=== PATIENT | female | born 1975 | race Hispanic/Latino ===

== ENCOUNTER 2018-11-07 14:16 | Emergency (ER) | payer MEDICAID, OTHER ==
[2018-11-07] MEDS ORDERED: TETRACAINE HCL 0.5% 4 ML OPHTH SOLN ONE (15:02)
[2018-11-07] MEDS ORDERED: DEXAMETHASONE SOD PHOSPHATE 10MG/ML 1ML VIAL ONE (15:02)
[2018-11-07] MEDS ORDERED: NA BORATE/BORIC AC/H2O/NACL 120 ML OPHTH IRRIG SOLN ONE (15:02)
[2018-11-07] MEDS ORDERED: FLUORESCEIN SODIUM 1 STRIP STRIP ONE (15:03)
[2018-11-07] MEDS ORDERED: DiphenhydrAMINE HCL 50 MG/ML VIAL ONE (15:03)
== END 2018-11-07 16:40 | disposition home or self-care (01) ==
LOC: EDH 14:16
DX: H10.11 Acute atopic conjunctivitis, right eye (principal); E11.9 Type 2 diabetes mellitus without complications; Z90.49 Acquired absence of other specified parts of digestive tract
CPT/HCPCS: 81025; 96372 ×2; 99284; J1100; J1200

== ENCOUNTER 2019-09-25 12:53 | Emergency (ER) | payer OTHER, SELFPAY ==
[2019-09-25 14:47] LABS: BASOPHILS % (AUTO) 0.4 % (0.0-5.0); EOSINOPHILS % (AUTO) 3.4 % (0.0-8.0); HEMATOCRIT 34.7 % (36-48); LYMPHOCYTES % (AUTO) 18.2 % (21.0-51.0); MEAN CORPUSCULAR HEMOGLOBIN 18.9 pg (27.0-33.0); MEAN CORPUSCULAR HGB CONC 29.7 g/dL (32.0-36.0); MEAN CORPUSCULAR VOLUME 63.8 fL (79-99); MONOCYTES % (AUTO) 6.4 % (3.0-13.0); NEUTROPHILS % (AUTO) 71.3 % (40.0-77.0); PLATELET COUNT (AUTO) 433 K/uL (130-400); RED BLOOD CELL COUNT(AUTO) 5.44 MIL/uL (4.00-5.50); RED CELL DISTRIBUTION WIDTH 16.8 % (11.0-15.5); WHITE BLOOD COUNT (AUTO) 9.1 K/uL (4.8-10.8)
[2019-09-25 14:51] LABS: CREATININE 0.6 mg/dL (0.5-1.5); POTASSIUM 3.2 mmol/L (3.5-5.1)
[2019-09-25 15:01] LABS: ALBUMIN 3.4 g/dL (3.5-5.0); BILIRUBIN,TOTAL 0.2 mg/dL (0.2-1.0); TOTAL PROTEIN, SERUM 7.9 g/dL (6.0-8.3)
[2019-09-25] MEDS ORDERED: KETOROLAC TROMETHAMINE 15MG/ML ONE (15:03)
[2019-09-25] MEDS ORDERED: SODIUM CHLORIDE 0.9% 1000ML 1,000 ML IV ONE (15:03)
[2019-09-25 15:13] LABS: APPEARANCE,URINE Cloudy (CLEAR); BILIRUBIN,URINE Negative (NEGATIVE); COLOR,URINE Yellow (YELLOW); GLUCOSE, URINE (UA) >=1000 mg/dL (NEGATIVE); KETONES,URINE Negative (NEGATIVE); LEUKOCYTE ESTERASE ,URINE Moderate (NEGATIVE); NITRATE,URINE Negative (NEGATIVE); OCCULT BLOOD,URINE Negative (NEGATIVE); PH,URINE 6.5 (5.0-8.0); PROTEIN,URINE Trace mg/dL (NEGATIVE)
[2019-09-25 15:43] LABS: BACTERIA,URINE Few /HPF (None Seen); RBC,URINE None Seen /HPF (0-1)
== END 2019-09-25 16:01 | disposition home or self-care (01) ==
LOC: EDH 12:53
DX: N39.0 Urinary tract infection, site not specified (principal); R10.31 Right lower quadrant pain; E11.9 Type 2 diabetes mellitus without complications; Z90.49 Acquired absence of other specified parts of digestive tract
CPT/HCPCS: 36415; 74176; 80053; 81001; 84702; 85025; 96374; 99285; J1885; J7030

== ENCOUNTER 2021-07-22 19:26 | Emergency (ER) | payer SELFPAY ==
[~2021-07-22] VITALS: Ht 162.6 cm; Wt 57.6 kg
[2021-07-22] MEDS ORDERED: ASPIRIN 325MG TAB PO ONE (20:00)
[2021-07-22 20:15] LABS: BASOPHILS % (AUTO) 0.5 % (0.0-5.0); EOSINOPHILS % (AUTO) 4.3 % (0.0-8.0); HEMATOCRIT 28.7 % (36-48); LYMPHOCYTES % (AUTO) 20.5 % (21.0-51.0); MEAN CORPUSCULAR HEMOGLOBIN 16.1 pg (27.0-33.0); MEAN CORPUSCULAR HGB CONC 27.2 g/dL (32.0-36.0); MEAN CORPUSCULAR VOLUME 59.2 fL (79-99); NEUTROPHILS % (AUTO) 67.5 % (40.0-77.0); PLATELET COUNT (AUTO) 567 K/uL (130-400); RED BLOOD CELL COUNT(AUTO) 4.85 MIL/uL (4.00-5.50); RED CELL DISTRIBUTION WIDTH 19.6 % (11.0-15.5); WHITE BLOOD COUNT (AUTO) 10.1 K/uL (4.8-10.8)
[2021-07-22 20:29] LABS: CREATININE 0.7 mg/dL (0.5-1.5); POTASSIUM 3.5 mmol/L (3.5-5.1)
[2021-07-22 20:34] LABS: ALBUMIN 3.6 g/dL (3.5-5.0); BILIRUBIN,TOTAL 0.2 mg/dL (0.2-1.0); TOTAL PROTEIN, SERUM 7.9 g/dL (6.0-8.3)
[2021-07-22] MEDS ORDERED: ORPHENADRINE CITRATE 30 MG/ML ML IV ONE (21:00)
[2021-07-22] MEDS ORDERED: KETOROLAC 30MG VIAL (30MG/ML) IV ONE (21:00)
[2021-07-22 21:57] LABS: APPEARANCE,URINE Clear (CLEAR); BILIRUBIN,URINE Negative (NEGATIVE); COLOR,URINE Yellow (YELLOW); GLUCOSE, URINE (UA) 250 mg/dL (NEGATIVE); KETONES,URINE Negative (NEGATIVE); LEUKOCYTE ESTERASE ,URINE Small (NEGATIVE); NITRATE,URINE Negative (NEGATIVE); OCCULT BLOOD,URINE Trace (NEGATIVE); PROTEIN,URINE Negative (NEGATIVE); UROBILINOGEN,URINE 0.2 mg/dL (0.2-1.0)
[2021-07-22 21:59] LABS: HCG,QUAL RESULT NEGATIVE (NEGATIVE)
[2021-07-22] MEDS ORDERED: DiphenhydrAMINE HCL 50 MG/ML VIAL IV ONE (22:00)
[2021-07-22 22:05] LABS: AMPHET/METH SCREEN,URINE NEGATIVE (NEGATIVE); BARBITURATE SCREEN, URINE NEGATIVE (NEGATIVE); BENZODIAZEPINES SCREEN,URINE NEGATIVE (NEGATIVE); CANNABINOID SCREEN,URINE NEGATIVE (NEGATIVE); COCAINE SCREEN,URINE NEGATIVE (NEGATIVE); OPIATE SCREEN,URINE NEGATIVE (NEGATIVE); PHENCYCLIDINE SCREEN,URINE NEGATIVE (NEGATIVE)
[2021-07-22 22:06] LABS: BACTERIA,URINE Few /HPF (None Seen); MUCUS,URINE Few LPF (None Seen); SQUAMOUS EPITHELIAL CELL,UR Moderate /HPF (0-2)
[2021-07-22] MEDS ORDERED: IOHEXOL 350 MG/ML 100ML INFUS..BTL IV ONE (22:16)
[2021-07-22 23:31] VITALS: BP 147/85
[2021-07-22] MEDS ORDERED: MELO7.5T12 PO (23:35)
[2021-07-22] MEDS ORDERED: ORPH-43 PO (23:35)
== END 2021-07-22 23:57 | disposition home or self-care (01) ==
LOC: EDH 19:26
DX: R07.89 Other chest pain (principal); D64.9 Anemia, unspecified; M62.838 Other muscle spasm; M54.6 Pain in thoracic spine; E11.9 Type 2 diabetes mellitus without complications; E78.00 Pure hypercholesterolemia, unspecified; Z79.1 Long term (current) use of non-steroidal anti-inflammatories (NSAID); Z79.899 Other long term (current) drug therapy
CPT/HCPCS: 36415; 71045; 71260; 74177; 80053; 80305; 81001; 81025; 84484; 85025; 87088; 93005; 96374; 96375; 99285; J1200; J1885; J2360; Q9967

== ENCOUNTER 2023-12-31 15:29 | Inpatient (IN) | payer OTHER ==
[~2023-12-31] VITALS: Ht 144.8 cm; Wt 59.5 kg
[~2023-12-31 15:29] MED LIST: MELO7.5T12 PO; ORPH100T4 PO
[2023-12-31 16:03] LABS: BASOPHILS # (AUTO) 0.04 K/uL (0.00-0.20); BASOPHILS % (AUTO) 0.3 % (0.0-5.0); EOSINOPHILS # (AUTO) 0.03 K/uL (0.00-0.70); EOSINOPHILS % (AUTO) 0.2 % (0.0-8.0); HEMATOCRIT 32.8 % (36-48); IMMATURE GRANULOCYTE ABSOLUTE 0.07 K/uL (0-1); LYMPHOCYTES # (AUTO) 0.4 K/uL (1.0-4.8); LYMPHOCYTES % (AUTO) 2.5 % (21.0-51.0); MEAN CORPUSCULAR HEMOGLOBIN 20.7 pg (27.0-33.0); MEAN CORPUSCULAR HGB CONC 31.7 g/dL (32.0-36.0); MEAN CORPUSCULAR VOLUME 65.3 fL (79-99); MONOCYTES # (AUTO) 0.2 K/uL (0.1-1.0); MONOCYTES % (AUTO) 1.4 % (3.0-13.0); NEUTROPHILS # (AUTO) 13.9 K/uL (1.8-7.7); NEUTROPHILS % (AUTO) 95.1 % (40.0-77.0); PLATELET COUNT (AUTO) 414 K/uL (130-400); RED BLOOD CELL COUNT(AUTO) 5.02 MIL/uL (4.00-5.50); RED CELL DISTRIBUTION WIDTH 17.5 % (11.0-15.5); WHITE BLOOD COUNT (AUTO) 14.6 K/uL (4.8-10.8)
[2023-12-31] MEDS: 0.9%NACL 1000ML 1,000 ML IV ONE (16:22)
[2023-12-31] MEDS: ACETAMINOPHEN 500 MG TABLET PO ONE (16:22)
[2023-12-31 16:23] LABS: APPEARANCE,URINE CLOUDY (CLEAR); BILIRUBIN,URINE NEGATIVE (NEGATIVE); COLOR,URINE LIGHT-YELLOW (YELLOW); GLUCOSE, URINE (UA) >=1000 mg/dL (NEGATIVE); KETONES,URINE 5 mg/dL (NEGATIVE); LEUKOCYTE ESTERASE ,URINE 500 Leu/uL (NEGATIVE); NITRATE,URINE 1+ (NEGATIVE); OCCULT BLOOD,URINE MODERATE (NEGATIVE); PROTEIN,URINE 100 mg/dL (NEGATIVE); UROBILINOGEN,URINE 0.2 mg/dL (0.2-1.0)
[2023-12-31 16:24] LABS: ADD UA MICROSCOPIC YES
[2023-12-31 16:31] LABS: BACTERIA,URINE RARE /HPF (None Seen); MUCUS,URINE RARE LPF (None Seen); SQUAMOUS EPITHELIAL CELL,UR MOD /HPF (0-2); WBC CLUMP MOD /HPF (0-1); WBC,URINE TNTC /HPF (0-1)
[2023-12-31 16:37] LABS: CREATININE 0.9 mg/dL (0.5-1.0); POTASSIUM 3.6 mmol/L (3.5-5.1)
[2023-12-31 16:42] LABS: ALBUMIN 3.5 g/dL (3.5-5.0); BILIRUBIN,TOTAL 0.5 mg/dL (0.2-1.0); TOTAL PROTEIN, SERUM 8.3 g/dL (6.0-8.3)
[2023-12-31 16:56] LABS: COVID19 (SARS ANTIGEN RAPID) PRESUMPTIVE NEGATIVE (NEGATIVE); INFLUENZA TYPE A Negative For Type A (NEGATIVE); INFLUENZA TYPE B Negative For Type B (NEGATIVE)
[2023-12-31] MEDS: CEFTRIAXONE 1G VIAL IVPB SCH (17:46)
[2023-12-31] MEDS: KETOROLAC 15MG/ML VIAL (15MG/ML) IV SCH (17:49)
[2023-12-31] MEDS: 0.9%NACL 1000ML 1,000 ML IV SCH ×2 (17:49→21:18)
[2023-12-31] MEDS ORDERED: GLUCAGON 1MG KIT 1 MG ML IM PRN (19:00)
[2023-12-31] MEDS ORDERED: POTASSIUM CHLORIDE 20MEQ/100ML 100 ML IV PRN (19:00)
[2023-12-31] MEDS ORDERED: ONDANSETRON 4MG INJ IV PRN (19:00)
[2023-12-31] MEDS ORDERED: POTASSIUM CHLORIDE 10% ELIXIR 20 MEQ/15 ML UDCUP PO PRN (19:00)
[2023-12-31] MEDS ORDERED: DEXTROSE 50%-WATER 50 ML DISP.SYRIN IV PRN (19:00)
[2023-12-31] MEDS: CEFTRIAXONE 1G VIAL 1 GM in 0.9%NACL 50ML 50 ML IV SCH (20:06)
[2023-12-31] MEDS: FAMOTIDINE 20MG TAB PO SCH (21:17)
[2023-12-31 22:32] VITALS: BP 112/72; PULSE 99; RESP 18
[2023-12-31] MEDS: INSULIN HUMULIN R 100 UNIT/ML 3ML SQ SCH (23:01)
[2023-12-31 23:59] VITALS: BP 164/92; PULSE 140; RESP 20
[2024-01-01] VITALS (7 sets, daily range): BP systolic 95–123; BP diastolic 65–80; PULSE 85–114; RESP 16–18; O2SAT 96–97
[2024-01-01 05:06] LABS: BASOPHILS # (AUTO) 0.05 K/uL (0.00-0.20); BASOPHILS % (AUTO) 0.2 % (0.0-5.0); EOSINOPHILS # (AUTO) 0.12 K/uL (0.00-0.70); EOSINOPHILS % (AUTO) 0.5 % (0.0-8.0); HEMATOCRIT 26.6 % (36-48); IMMATURE GRANULOCYTE ABSOLUTE 0.45 K/uL (0-1); LYMPHOCYTES # (AUTO) 0.6 K/uL (1.0-4.8); LYMPHOCYTES % (AUTO) 2.6 % (21.0-51.0); MEAN CORPUSCULAR HEMOGLOBIN 20.8 pg (27.0-33.0); MEAN CORPUSCULAR HGB CONC 30.8 g/dL (32.0-36.0); MEAN CORPUSCULAR VOLUME 67.3 fL (79-99); MONOCYTES # (AUTO) 1.4 K/uL (0.1-1.0); NEUTROPHILS # (AUTO) 19.9 K/uL (1.8-7.7); NEUTROPHILS % (AUTO) 88.7 % (40.0-77.0); PLATELET COUNT (AUTO) 358 K/uL (130-400); RED BLOOD CELL COUNT(AUTO) 3.95 MIL/uL (4.00-5.50); RED CELL DISTRIBUTION WIDTH 17.4 % (11.0-15.5); WHITE BLOOD COUNT (AUTO) 22.5 K/uL (4.8-10.8)
[2024-01-01 05:29] LABS: ALBUMIN 2.3 g/dL (3.5-5.0); BILIRUBIN,TOTAL 0.3 mg/dL (0.2-1.0); CREATININE 0.7 mg/dL (0.5-1.0); MAGNESIUM 1.3 mg/dL (1.80-2.40)
[2024-01-01 05:55] LABS: HEMOGLOBIN A1C 9.1 % (4.0-6.0)
[2024-01-01] MEDS: KCL 20 MEQ ERTAB PO PRN (05:56)
[2024-01-01] MEDS: MAGNESIUM 2GM PREMIX 50ML 50 ML IV PRN (05:58)
[2024-01-01] MEDS: CEFTRIAXONE 2GM VIAL IVPB SCH (08:45)
[2024-01-01 12:43] LABS: % IRON SATURATION 1.8 % (22-44)
[2024-01-01] MEDS: ZOSYN 3.375GM +NS 50ML IV SCH (13:55)
[2024-01-01 14:26] LABS: MAGNESIUM 2.4 mg/dL (1.80-2.40)
[2024-01-02] VITALS (10 sets, daily range): BP systolic 113–164; BP diastolic 68–99; PULSE 94–112; RESP 17–24; TEMP 99.7; O2SAT 93–97
[2024-01-02 05:19] LABS: BASOPHILS # (AUTO) 0.02 K/uL (0.00-0.20); BASOPHILS % (AUTO) 0.2 % (0.0-5.0); EOSINOPHILS # (AUTO) 0.07 K/uL (0.00-0.70); EOSINOPHILS % (AUTO) 0.6 % (0.0-8.0); HEMATOCRIT 26.4 % (36-48); IMMATURE GRANULOCYTE ABSOLUTE 0.07 K/uL (0-1); LYMPHOCYTES # (AUTO) 0.8 K/uL (1.0-4.8); LYMPHOCYTES % (AUTO) 6.5 % (21.0-51.0); MEAN CORPUSCULAR HEMOGLOBIN 20.8 pg (27.0-33.0); MEAN CORPUSCULAR HGB CONC 30.7 g/dL (32.0-36.0); MEAN CORPUSCULAR VOLUME 67.9 fL (79-99); MONOCYTES # (AUTO) 0.8 K/uL (0.1-1.0); MONOCYTES % (AUTO) 6.6 % (3.0-13.0); NEUTROPHILS # (AUTO) 10.5 K/uL (1.8-7.7); NEUTROPHILS % (AUTO) 85.5 % (40.0-77.0); PLATELET COUNT (AUTO) 335 K/uL (130-400); RED BLOOD CELL COUNT(AUTO) 3.89 MIL/uL (4.00-5.50); RED CELL DISTRIBUTION WIDTH 18.1 % (11.0-15.5); WHITE BLOOD COUNT (AUTO) 12.2 K/uL (4.8-10.8)
[2024-01-02 05:28] LABS: CREATININE 0.5 mg/dL (0.5-1.0); MAGNESIUM 1.6 mg/dL (1.80-2.40); POTASSIUM 3.7 mmol/L (3.5-5.1)
[2024-01-02] MEDS: MAGNESIUM 2GM PREMIX 50ML 50 ML IV PRN (05:32)
[2024-01-02] MEDS: IRON SUCROSE COMPLEX 100 MG/5 ML VIAL IV ONE (08:35)
[2024-01-02] MEDS: ACETAMINOPHEN 325 MG TAB PO PRN (08:36)
[2024-01-02] MEDS ORDERED: IOHEXOL 350 MG/ML 100ML INFUS..BTL IV ONE (16:24)
[2024-01-02 16:29] LABS: INR 1.05 (0.85-1.15); PROTHROMBIN TIME 12.3 SEC (9.6-11.6)
[2024-01-02 16:30] LABS: PARTIAL THROMBOPLASTIN TIME 33.6 SEC (26.3-35.5)
[2024-01-02] MEDS ORDERED: NITROGLYCERIN 0.4 MG SL TAB SL PRN ×2 (17:00→17:30)
[2024-01-02] MEDS: ENOXAPARIN SODIUM 60 MG/0.6 ML SQ SCH (17:17)
[2024-01-02] MEDS: ASPIRIN 81MG CHEW TAB PO STA (17:18)
[2024-01-02] MEDS: METOPROLOL TARTRATE 1 MG/ML 5ML VIAL IV STA (17:19)
[2024-01-02] MEDS: ASPIRIN 325MG TAB PO SCH (17:33)
[2024-01-02] MEDS: METOPROLOL TARTRATE 25 MG TAB PO SCH (21:22)
[2024-01-02] MEDS: FUROSEMIDE 20MG VIAL IV SCH (21:22)
[2024-01-02] MEDS: ATORVASTATIN 40 MG TABLET PO SCH (21:22)
[2024-01-03] VITALS (12 sets, daily range): BP systolic 122–148; BP diastolic 78–89; PULSE 81–107; RESP 16–22; O2SAT 95–100
[2024-01-03] MEDS: ASPIRIN 81 MG EC TAB PO SCH (09:04)
[2024-01-03] MEDS: MAGNESIUM OXIDE 400 MG TABLET PO SCH (09:05)
[2024-01-03] MEDS: IPRATROPIUM/ALBUTEROL SULFATE 3 ML SOLUTION IH SCH (11:36)
[2024-01-03 11:41] LABS: HEMATOCRIT 30.6 % (36-48); MEAN CORPUSCULAR HEMOGLOBIN 20.6 pg (27.0-33.0); MEAN CORPUSCULAR HGB CONC 30.1 g/dL (32.0-36.0); MEAN CORPUSCULAR VOLUME 68.6 fL (79-99); RED BLOOD CELL COUNT(AUTO) 4.46 MIL/uL (4.00-5.50); RED CELL DISTRIBUTION WIDTH 17.9 % (11.0-15.5)
[2024-01-03 11:45] LABS: CREATININE 0.7 mg/dL (0.5-1.0); POTASSIUM 3.9 mmol/L (3.5-5.1)
[2024-01-03 11:50] LABS: ALBUMIN 2.8 g/dL (3.5-5.0); BILIRUBIN,TOTAL 0.4 mg/dL (0.2-1.0); TOTAL PROTEIN, SERUM 7.4 g/dL (6.0-8.3)
[2024-01-03] MEDS ORDERED: AEC81 PO (13:29)
[2024-01-03] MEDS ORDERED: ATOR40TA69 PO (13:29)
[2024-01-03] MEDS ORDERED: NITR0.4T50 SL (13:29)
[2024-01-03] MEDS ORDERED: METO25 PO (13:29)
[2024-01-03] MEDS: CLOPIDOGREL 300MG TAB PO ONE (15:47)
[2024-01-03] MEDS: ACETAMINOPHEN 325 MG TAB PO PRN (15:51)
[2024-01-04] VITALS (8 sets, daily range): BP systolic 136–148; BP diastolic 71–93; PULSE 86–104; RESP 14–20; O2SAT 95–96
[2024-01-04 03:51] LABS: HEMATOCRIT 25.7 % (36-48); MEAN CORPUSCULAR HEMOGLOBIN 20.4 pg (27.0-33.0); MEAN CORPUSCULAR HGB CONC 31.1 g/dL (32.0-36.0); MEAN CORPUSCULAR VOLUME 65.4 fL (79-99); RED BLOOD CELL COUNT(AUTO) 3.93 MIL/uL (4.00-5.50); RED CELL DISTRIBUTION WIDTH 17.4 % (11.0-15.5); WHITE BLOOD COUNT (AUTO) 8.4 K/uL (4.8-10.8)
[2024-01-04 04:08] LABS: ALBUMIN 2.5 g/dL (3.5-5.0); BILIRUBIN,TOTAL 0.2 mg/dL (0.2-1.0); CREATININE 0.6 mg/dL (0.5-1.0); MAGNESIUM 1.9 mg/dL (1.80-2.40); POTASSIUM 3.7 mmol/L (3.5-5.1); TOTAL PROTEIN, SERUM 6.6 g/dL (6.0-8.3)
[2024-01-04] MEDS: PREDNISONE 20 MG TABLET PO SCH (08:33)
[2024-01-04] MEDS: CLOPIDOGREL 75MG TAB PO SCH (08:33)
[2024-01-04] MEDS: ENOXAPARIN SODIUM 30 MG/0.3 ML SQ SCH (08:33)
[2024-01-04] MEDS ORDERED: METF-444 PO (13:51)
[2024-01-04] MEDS ORDERED: CLOP-31 PO (15:05)
[2024-01-04] MEDS ORDERED: FURO20TA6 PO (15:05)
[2024-01-04] MEDS ORDERED: LEVO750T39 PO (15:11)
[2024-01-05] MEDS ORDERED: FUROSEMIDE 20 MG TABLET PO SCH (09:00)
== END 2024-01-04 16:00 | disposition home or self-care (01) | DRG 871 ==
LOC: EDH 15:29 → EDHIP 15:30 → 3DH 20:49 → 2DH 01-02 19:07 → 3BH 01-04 12:20
PROVIDERS: ADMIT Internal Medicine; ATTEND Internal Medicine
DX: A41.59 Other Gram-negative sepsis (principal); I21.A1 Myocardial infarction type 2; J18.9 Pneumonia, unspecified organism; J96.01 Acute respiratory failure with hypoxia; N39.0 Urinary tract infection, site not specified; E87.20 Acidosis, unspecified; J81.1 Chronic pulmonary edema; Z20.822 Contact with and (suspected) exposure to COVID-19; R65.20 Severe sepsis without septic shock; E87.6 Hypokalemia; E11.65 Type 2 diabetes mellitus with hyperglycemia; E78.00 Pure hypercholesterolemia, unspecified; B96.20 Unspecified Escherichia coli [E. coli] as the cause of diseases classified elsewhere; D50.9 Iron deficiency anemia, unspecified; K76.0 Fatty (change of) liver, not elsewhere classified; I10 Essential (primary) hypertension; I25.10 Atherosclerotic heart disease of native coronary artery without angina pectoris; Z86.73 Personal history of transient ischemic attack (TIA), and cerebral infarction without residual deficits; Z90.49 Acquired absence of other specified parts of digestive tract
CPT/HCPCS: 36415; 71045; 71270; 76376; 76770; 80048; 80053; 80061; 81001; 81025; 82306; 82550; 82607; 82728; 82746; 82948; 83036; 83540; 83550; 83605; 83735; 83880; 84132; 84145; 84484; 85025; 85027; 85045; 85378; 85610; 85730; 87040; 87077; 87088; 87186; 87426; 87804; 93005; 93306; 93356; 94640; 94664; 96365; 96366; 96375; G0378; J0696; J1650; J1756; J1815; J1885; J1940; J2543; J3475; J3490; J7030; Q9967